=== PATIENT | male | born 1955 | race Caucasian/White ===

== ENCOUNTER 2024-09-15 00:07 | Emergency (ER) | payer BC, OTHER ==
[~2024-09-15] VITALS: Ht 172.7 cm; Wt 86.2 kg
[~2024-09-15 00:07] MED LIST: STOOL SOFTENER PO; [UNRECOGNIZED DRUG - REMARK] PO
[2024-09-15 01:14] VITALS: BP 148/88; TEMP 98.5; O2SAT 99
== END 2024-09-15 01:17 ==
LOC: ER 00:13
DX: Z04.1 Encounter for examination and observation following transport accident (principal); R51.9 Headache, unspecified; Z98.890 Other specified postprocedural states; V89.2XXA Person injured in unspecified motor-vehicle accident, traffic, initial encounter; Y93.89 Activity, other specified; Y92.89 Other specified places as the place of occurrence of the external cause; Y99.8 Other external cause status
CPT/HCPCS: 70450; 71250; 72125; A4606; A4663